=== PATIENT | male | born 1970 | race Caucasian/White ===

== ENCOUNTER 2020-12-11 08:20 | Emergency (ER) | payer MEDICARE ==
--- NOTE | 2020-12-11 08:53 | EDM.PDOC ---
ED HPI GENERAL MEDICAL PROBLEM - General Stated Complaint: LFT ANKLE BROKEN Time Seen by Provider: 12/11/20 08:46 - History of Present Illness INITIAL COMMENTS - FREE TEXT/NARRATIVE: History of present illness: [] Last night a horse reared up and came down on his left leg. He injured his left ankle. There is an abrasion down the anterior left leg. The patient has severe pain worse with movement touching and walking. He denies any other injury Review of systems: As per history of present illness and below otherwise all systems reviewed and negative. Past medical history: As per history of present illness and as reviewed below otherwise nonco ntributory. Surgical history: As per history of present illness and as reviewed below otherwise noncontributory. Social history: No reported history of drug or alcohol abuse. Family history: As per history of present illness and as reviewed below otherwise noncontributory. Physical exam: Constitutional - well developed, well-nourished and in no acute distress HEENT - normocephalic, no evidence of trauma - external nose and mouth normal - no mass in neck and no JVD - mucosae moist EYES - full EOM, PERRL, no icterus - no evidence of inflammation, injection, or drainage Respiratory - no respiratory distress, equal bilateral expansion Musculoskeletal there is pain and swelling of the anterior joint between the ankle and the foot on the left side. There is tenderness and swelling about the left lateral malleolus. There is tenderness and swelling on the dorsum of the foot at the proximal metatarsal base. Otherwise no gross deformity of long bones or joints - no tenderness, swelling or edema Neurologic - Alert and oriented times four - CN II-XII grossly intact - motor sensory and coordination symmetrically normal Psychiatric - appropriate mood and affect with normal thought content Hematologic - No petechiae or purpura - mucosa appropriate color and sclera not pale - normal nail bed color and refill Integument -there is a partial-thickness abrasion down the anterior leg from the few inches below the knee to a few inches above the ankle. No rash or evidence of trauma - normal turgor Diagnostics: [] Therapeutics: [] Impression: [] Plan: [] Definitive disposition and diagnosis as appropriate pending reevaluation and review of above. left ankle Pain Score (Numeric/FACES): 9 - Related Data Allergies Allergy/AdvReac Type Severity Reaction Status Date / Time codeine Allergy Hives Verified 12/11/20 09:16 Penicillins Allergy Hives Verified 12/11/20 09:16 Home Meds: Home Meds . [No Known Home Meds] 12/11/20 [History] ED ROS GENERAL - Review of Systems Review Of Systems: Comprehensive ROS is negative, except as noted in HPI. ED EXAM, GENERAL - Physical Exam Exam: See Below Free Text/Narrative:: My physical exam is in the HPI Course - Vital Signs Text/Narrative:: 9:38 AM patient has no fracture that I can see in the foot or ankle. Injuries are soft tissue. Patient has to continue working on the farm. Plan clean abrasion apply bacitracin and apply walking boot. For DME purposes walking boot will be to protect the ligaments from further damage. He needs it for 2 weeks. Diagnosis is ankle sprain left lower extremity Last Recorded V/S: Last Vital Signs Temp 36.3 C 12/11/20 08:59 Pulse 86 12/11/20 08:59 Resp 18 12/11/20 08:59 BP 127/92 H 12/11/20 08:59 Pulse Ox 98 12/11/20 08:59 - Orders/Labs/Meds Orders: Active Orders 24 hr Category Date Time Status Communication Order [RC] STAT Care 12/11/20 09:38 Ordered Vaccine to be Administered/Admin Charge [RC] ASDIRECTED Care 12/11/20 09:02 Active Ankle Min 3V Lt [CR] Stat Exams 12/11/20 08:45 Taken Foot Comp Min 3V Lt [CR] Stat Exams 12/11/20 08:46 Taken DME for Discharge [COMM] Stat Oth 12/11/20 09:36 Ordered Meds: Medications Discontinued Medications Generic Name Dose Route Start Last Admin Trade Name Freq PRN Reason Stop Dose Admin Diphtheria/Tetanus/Acell Pertussis 0.5 ml 12/11/20 09:02 12/11/20 09:17 Diphtheria,Pertussis(Acell),Tetanus Vaccine 0.5 Ml Syringe IM 12/11/20 09:03 0.5 ml .ONCE ONE Administration Departure - Departure Time of Disposition: 09:50 Disposition: Home, Self-Care 01 Condition: Good Clinical Impression: Abrasion, left lower leg, initial encounter, Left ankle sprain, Contusion of left foot - Discharge Information Instructions: Ankle Sprain, [id number], Foot Contusion, [id number], Abrasion Referrals: PCP,None [Primary Care Provider] - Additional Instructions: Elevate ankle as much as possible. Remove the boot when you are nonweightbearing and apply ice. Orthopedic follow-up advised completely improved within a few days. [facility] [address], [address] [place] [address] The following information is given to patients seen in the emergency department who are being discharged to home. This information is to outline your options for follow-up care. We provide all patients seen in our emergency department with a follow-up referral. The need for follow-up, as well as the timing and circumstances, are variable depending upon the specifics of your emergency department visit. If you don't have a primary care physician on staff, we will provide you with a referral. We always advise you to contact your personal physician following an emergency department visit to inform them of the circumstance of the visit and for follow-up with them and/or the need for any referrals to a consulting specialist. The emergency department will also refer you to a specialist when appropriate. This referral assures that you have the opportunity for follow-up care with a specialist. All of these measure are taken in an effort to provide you with optimal care, which includes your follow-up. Under all circumstances we always encourage you to contact your private physician who remains a resource for coordinating your care. When calling for follow-up care, please make the office aware that this follow-up is from your recent emergency room visit. If for any reason you are refused follow-up, please contact the [facility] Emergency Department at and asked to speak to the emergency department charge nurse. Sepsis Event Note (ED) - Focused Exam Vital Signs: Vital Signs Temp Pulse Resp BP Pulse Ox 12/11/20 08:59 36.3 C 86 18 127/92 H 98 - My Orders Last 24 Hours: My Active Orders 12/11/20 08:45 Ankle Min 3V Lt [CR] Stat 12/11/20 08:46 Foot Comp Min 3V Lt [CR] Stat 12/11/20 09:02 Vaccine to be Administered/Admin Charge [RC] ASDIRECTED 12/11/20 09:36 DME for Discharge [COMM] Stat 12/11/20 09:38 Communication Order [RC] STAT - Assessment/Plan Last 24 Hours: My Active Orders 12/11/20 08:45 Ankle Min 3V Lt [CR] Stat 12/11/20 08:46 Foot Comp Min 3V Lt [CR] Stat 12/11/20 09:02 Vaccine to be Administered/Admin Charge [RC] ASDIRECTED 12/11/20 09:36 DME for Discharge [COMM] Stat 12/11/20 09:38 Communication Order [RC] STAT
[2020-12-11] MEDS ORDERED: Diphtheria,Pertussis(Acell),Tetanus Vaccine 0.5 ML Syringe IM ONE (09:02)
[2020-12-11] MEDS ORDERED: Bacitracin Oint 1 GM U/D Packet TOP ONE (09:42)
--- NOTE | 2020-12-11 10:10 | CR ---
Indication: Injury and pain. Technique: Left ankle 3 views. Comparison: None. Findings: Bones: Alignment is normal. No fractures or bone lesions. Joint spaces: Unremarkable. Soft tissues: Unremarkable. Impression: No sign of acute injury. Dictated by Alex Amezcua MD @ 12/11/2020 10:09:09 AM (Electronically Signed)
--- NOTE | 2020-12-11 10:12 | CR ---
Indication: Trauma. Technique: Left foot 3 views. Comparison: None. Findings: Bones: Alignment is normal. No fractures or bone lesions. Joint spaces: Unremarkable. Soft tissues: Unremarkable. Impression: No sign of acute injury. Dictated by Alex Amezcua MD @ 12/11/2020 10:11:46 AM (Electronically Signed)
== END 2020-12-11 09:59 | disposition home or self-care (01) ==
LOC: MW.ED 08:20
DX: S93.402A Sprain of unspecified ligament of left ankle, initial encounter (principal); S90.32XA Contusion of left foot, initial encounter; S80.812A Abrasion, left lower leg, initial encounter; Z23 Encounter for immunization; Z88.5 Allergy status to narcotic agent; Z88.0 Allergy status to penicillin; W55.12XA Struck by horse, initial encounter
CPT/HCPCS: 73610-26-LT; 73610-LT; 73630-26-LT; 73630-LT; 90471; 90715; 99283-25

== ENCOUNTER 2021-05-30 22:38 | Emergency (ER) | payer MEDICARE ==
[2021-05-30] MEDS ORDERED: Aspirin 81 MG Tab.Chew PO ONE (22:51)
[2021-05-30] MEDS ORDERED: Sodium Chloride 0.9% 10 ML Syringe FLUSH PRN (22:51)
[2021-05-30] MEDS ORDERED: Sodium Chloride 0.9% 2.5 ML Syringe FLUSH PRN (22:51)
[2021-05-30 23:27] LABS: BLOOD UREA NITROGEN,BUN 21 mg/dL (7.0-18.0); CARBON DIOXIDE,CO2 26.4 mmol/L (21.0-32.0); CHLORIDE,CL 103 mmol/L (98-107); ESTIMATED GFR 53.4 ml/min; GLUCOSE RANDOM 119 mg/dL (74-106); SODIUM,NA 140 mmol/L (136-148)
== END 2021-05-31 01:05 | disposition home or self-care (01) ==
LOC: MW.ED 22:38
DX: R07.9 Chest pain, unspecified (principal); I10 Essential (primary) hypertension; F17.220 Nicotine dependence, chewing tobacco, uncomplicated; Z88.5 Allergy status to narcotic agent; Z88.1 Allergy status to other antibiotic agents; Z88.0 Allergy status to penicillin; E55.9 Vitamin D deficiency, unspecified; R53.83 Other fatigue; R73.9 Hyperglycemia, unspecified
CPT/HCPCS: 36415; 71045; 80053; 82306; 83036; 83735; 84443; 84484; 85025; 93005; 99285; A9270; 93010; 99284

== ENCOUNTER 2021-07-30 08:44 | Day surgery (SDC) | payer MEDICARE ==
[~2021-07-30 08:44] MED LIST: Lactated Ringers 1,000 ML IV SCH; Propofol 200 MG/20 ML SDV ONE; fentaNYL 100 MCG/2 ML SDV ONE
[2021-07-30] MEDS ORDERED: Propofol 200 MG/20 ML SDV ONE (11:04)
== END 2021-07-30 12:15 | disposition home or self-care (01) ==
LOC: MW.SDS 08:44
PROVIDERS: ATTEND Surgery
DX: D12.2 Benign neoplasm of ascending colon (principal); E55.9 Vitamin D deficiency, unspecified; N40.0 Benign prostatic hyperplasia without lower urinary tract symptoms; G47.30 Sleep apnea, unspecified; I10 Essential (primary) hypertension; G43.909 Migraine, unspecified, not intractable, without status migrainosus; Z88.5 Allergy status to narcotic agent; Z88.1 Allergy status to other antibiotic agents; Z98.890 Other specified postprocedural states; Z79.82 Long term (current) use of aspirin; Z79.899 Other long term (current) drug therapy; Z80.0 Family history of malignant neoplasm of digestive organs
CPT/HCPCS: 45385; 88305; J2704; J3010; J7120; 00812

== ENCOUNTER 2021-11-08 19:56 | Emergency (ER) | payer MEDICARE | END 2021-11-08 22:22 | disposition home or self-care (01) | LOC: MW.ED 19:56 | DX: S69.92XA Unspecified injury of left wrist, hand and finger(s), initial encounter (principal); I10 Essential (primary) hypertension; F17.210 Nicotine dependence, cigarettes, uncomplicated; Z88.5 Allergy status to narcotic agent; Z88.1 Allergy status to other antibiotic agents; Z88.0 Allergy status to penicillin; Z79.899 Other long term (current) drug therapy; Z79.82 Long term (current) use of aspirin; W23.1XXA Caught, crushed, jammed, or pinched between stationary objects, initial encounter | CPT/HCPCS: 73130-26-LT; 73130-LT; 99282; 99283 ==

== ENCOUNTER 2021-12-14 19:40 | Emergency (ER) | payer OTHER, MEDICARE ==
[2021-12-14] MEDS: Ketorolac 30 MG/ML SDV IM ONE (22:33)
[2021-12-14] MEDS: Cyclobenzaprine 10 MG Tab PO ONE (23:35)
== END 2021-12-14 23:36 | disposition home or self-care (01) ==
LOC: MW.ED 19:40
DX: S16.1XXA Strain of muscle, fascia and tendon at neck level, initial encounter (principal); I10 Essential (primary) hypertension; F32.A Depression, unspecified; Z79.899 Other long term (current) drug therapy; Z88.5 Allergy status to narcotic agent; Z88.0 Allergy status to penicillin; Z88.1 Allergy status to other antibiotic agents; V89.2XXA Person injured in unspecified motor-vehicle accident, traffic, initial encounter
CPT/HCPCS: 72125; 96372; 99283; A9270; J1885; 99284

== ENCOUNTER 2023-11-06 21:02 | Emergency (ER) | payer MEDICARE ==
[2023-11-06] MEDS: Acetaminophen/oxyCODONE 325-5 MG Tab PO STA (22:15)
[2023-11-06 22:28] LABS: BASOPHILS ABSOLUTE AUTO 0.03 K/uL (0.00-0.20); BASOPHILS PERCENT AUTO 0.5 % (0.0-1.0); EOSINOPHILS ABSOLUTE AUTO 0.24 K/uL (0.00-0.45); EOSINOPHILS PERCENT AUTO 3.7 % (0.0-6.0); HEMATOCRIT 40.1 % (42.0-52.0); HEMOGLOBIN 13.8 g/dL (14.0-18.0); IMMATURE GRAN ABSOLUTE AUTO 0.02 K/uL (0.00-0.05); IMMATURE GRAN PERCENT AUTO 0.3 % (0.0-0.4); LYMPHOCYTES ABSOLUTE AUTO 1.38 K/uL (1.00-4.80); LYMPHOCYTES PERCENT AUTO 21.4 % (24.0-44.0); MEAN CORPUSCULAR HEMOGLOBIN 29.3 pg (28.0-32.0); MEAN CORPUSCULAR HGB CONC 34.4 g/dL (32.0-36.0); MEAN CORPUSCULAR VOLUME 85.1 fL (83.0-99.0); MEAN PLATELET VOLUME 8.6 fL (9.4-12.4); MONOCYTES ABSOLUTE AUTO 0.37 K/uL (0.00-0.80); MONOCYTES PERCENT AUTO 5.7 % (0.0-8.0); NEUTROPHILS PERCENT AUTO 68.4 % (41.0-71.0); PLATELET COUNT,PLT 172 K/uL (150-400); RED BLOOD CELL COUNT 4.71 M/uL (4.52-5.90); WHITE BLOOD CELL COUNT,WBC 6.44 K/uL (3.9-11.3)
[2023-11-06 22:53] LABS: A/G RATIO 1.2 (0.9-1.6); ALBUMIN 3.8 g/dL (3.4-5.0); BILIRUBIN TOTAL 0.6 mg/dL (0.2-1.0); CALCIUM 8.9 mg/dL (8.5-10.1); CARBON DIOXIDE,CO2 27.4 mmol/L (21.0-32.0); CREATININE 1.3 mg/dL (0.8-1.3); EST CRCL DRUG DOSING (CG) 77.64 mL/min; POTASSIUM,K 4.2 mmol/L (3.5-5.1); PROTEIN TOTAL,TP 6.9 g/dL (6.4-8.2)
== END 2023-11-06 23:39 | disposition home or self-care (01) ==
LOC: MW.ED 21:02
DX: R10.2 Pelvic and perineal pain (principal); Z75.8 Other problems related to medical facilities and other health care; Z88.0 Allergy status to penicillin; Z88.5 Allergy status to narcotic agent; Z88.1 Allergy status to other antibiotic agents
CPT/HCPCS: 36415; 72170; 80053; 85025; 99284; A9270; 99283